=== PATIENT | male | born 1965 | race Caucasian/White ===

== ENCOUNTER 2018-02-14 09:26 | Inpatient (IN) | payer BC, OTHER ==
[2018-02-12 14:26] VITALS: BMI 25.0
[2018-02-14] MEDS ORDERED: ceFAZolin SODIUM 1 GM VIAL IVPB ONE (10:42)
[2018-02-14] MEDS ORDERED: PROMETHAZINE HCL 25 MG/1 ML VIAL IVPUSH PRN (12:09)
[2018-02-14] MEDS ORDERED: oxyCODONE HCL 5 MG TABLET PO PRN (12:09)
[2018-02-14] MEDS ORDERED: ONDANSETRON 4 MG/2 ML VIAL IVPUSH PRN (12:09)
--- NOTE | 2018-02-14 12:10 | OP ---
Operative Note - Note: Operative Date: 02/14/18 Pre-Operative Diagnosis: Bilateral renal colic, left ureteral calculus Operation: Cysto left ureteroscopy, laser litho and stent placement Left. Stent placement right. Post-Operative Diagnosis: Same as Pre-op Anesthesia: General Drains & Tubes with Location: Bilateral stent placement Operative Report Dictated: Yes
[2018-02-14] MEDS ORDERED: LACTATED RINGERS SOLUTION 1,000 ML IV SCH (12:15)
[2018-02-14] MEDS ORDERED: ONDANSETRON 4 MG/2 ML VIAL IVPB ONE (14:40)
--- NOTE | 2018-02-14 14:52 | OP ---
DATE OF OPERATION: 02/14/2018 SURGEON: Tremayne Hartman MD ANESTHESIA: General. PREOPERATIVE DIAGNOSIS: Bilateral ureteral calculi. POSTOPERATIVE DIAGNOSIS: Bilateral ureteral calculi. PROCEDURES: Cystoscopy, left ureteroscopy, laser lithotripsy, and stent placement, and on the right side stent placement. FINDINGS: Urethra normal. Bladder within normal limits. Both ureteral orifices normally located with clear efflux. A 5-6-mm stone was found completely imbedded in the left lower ureter. There was a tremendous amount of periurethral inflammation and the tissue was found to be markedly fragile. PROCEDURE: Patient in lithotomy position under anesthesia was prepped and draped in the usual manner. Using a 22-scope, cystoscopy performed and a guide wire was placed in the left kidney. This was followed by a ureteroscopy and with considerable difficulty the stone was located. The ureteroscope could not be passed beyond the stone and the stone was found to be completely embedded in the wall of the ureter. Again, using the holmium laser and a 365 fiber, the stone was fragmented, but could not be basketed out because of the periurethral inflammation. It was at this point decided to just place the stent to prevent any further injury to the ureter, let the ureter heal, and maybe follow it up with ESWL or secondary lithotripsy. At this point, a second stent was placed in the right kidney, confirmed with x-ray. Patient tolerated the procedure well, left the operating room in a satisfactory condition. Thierno MEDEROS/[id number]
[2018-02-14] MEDS ORDERED: LIDOCAINE HCL 2% (50ML VIAL) SQ ONE (15:25)
[2018-02-14] MEDS ORDERED: LIDOCAINE HCL 2% JELLY (30 ML/TUBE) TP ONE (15:30)
[2018-02-14] MEDS ORDERED: MORPHINE SULFATE 2 MG/ML VIAL IVPUSH PRN (15:50)
[2018-02-14] MEDS ORDERED: DEXTROSE 5%-0.45% SALINE 1,000 ML IV SCH (16:45)
--- NOTE | 2018-02-14 16:47 | PROC ---
Procedure Note Procedure: Called by [facility] to secondary to patient in urinary retention s/p urology procedure. Spoke to Dr Weldon who asked surgical team to evaluate patient. Patient found with 10/10 pain, distended abdomen and unable to urinate. A 24F 3 -way catheter inserted with ease, clots irrigated and CBI started in [facility], fluid running freely and patient admitted for 23 hour observation. Dioni NO was present and assisted throughout the entire procedure.
[2018-02-14] MEDS ORDERED: PHENAZOPYRIDINE HCL 100 MG TABLET (FP) PO ONE (17:00)
[2018-02-14] MEDS ORDERED: PT OWN MED DRAWER 7, Y5N ONE (19:35)
[2018-02-14] MEDS: CEFAZOLIN 1 GM/D5W 1 GM/50 ML BAG IVPB SCH (19:39)
[2018-02-15] MEDS: CEFAZOLIN 1 GM/D5W 1 GM/50 ML BAG IVPB SCH ×2 (02:20→09:29)
--- NOTE | 2018-02-15 10:32 | PN ---
Progress Note (short form) - Note Progress Note: POD 1 Doing better, CBI return clear. Will d/c CBI. For discharge today with leg bag. Force oral fluids. Office Saturday for dorsey removal.
[2018-02-15] MEDS: oxyCODONE HCL 5 MG TABLET PO PRN ×3 (11:57→20:13)
[2018-02-15 13:03] LABS: HEMATOCRIT 41.1 % (35.4-49); HEMOGLOBIN 14.6 GM/dL (11.7-16.9); MCH 30.9 pg (25.7-33.7); MCHC 35.6 g/dl (32.0-35.9); MEAN PLT VOLUME 7.6 fl (7.5-11.1); PLATELET COUNT 317 K/MM3 (134-434); RBC 4.73 M/mm3 (4.00-5.60); RDW 13.5 % (11.9-15.9); WHITE BLOOD COUNT 10.8 K/mm3 (4.0-10.0)
[2018-02-15 13:30] LABS: ALBUMIN 3.7 g/dl (3.4-5.0); ALK PHOS 100 U/L (45-117); ANION GAP 7 MMOL/L (8-16); BILIRUBIN,TOTAL 0.6 mg/dL (0.2-1); BLOOD UREA NITROGEN 12 mg/dL (7-18); CALCIUM 8.7 mg/dL (8.5-10.1); CHLORIDE 105 mmol/L (98-107); CO2 27 mmol/L (21-32); CREATININE 1.2 mg/dL (0.55-1.3); GLUCOSE,RANDOM 99 mg/dL (74-106); POTASSIUM 4.1 mmol/L (3.5-5.1); SGOT/AST 18 U/L (15-37); SGPT/ALT 31 U/L (13-61); SODIUM 139 mmol/L (136-145); TOT PROT 7.3 g/dl (6.4-8.2)
[2018-02-16] MEDS: oxyCODONE HCL 5 MG TABLET PO PRN (11:07)
--- NOTE | 2018-02-16 11:31 | PN ---
Progress Note (short form) - Note Progress Note: Status Post Bilateral stent placement. Hematuria and clot retention. Has indwelling dorsey. Will keep him in hospital for pain management. Will get KUB. Will d/c dorsey in am and decide. Had bowel movements. Abd is soft, non tender. Dorsey draining still pinkish urine. To increase oral fluids. Will observe.
[2018-02-16] MEDS ORDERED: oxyCODONE HCL 5 MG TABLET PO PRN (16:06)
[2018-02-16] MEDS: DOCUSATE SODIUM 100 MG CAPSULE (FP) PO SCH (18:08)
[2018-02-17] MEDS: DOCUSATE SODIUM 100 MG CAPSULE (FP) PO SCH ×2 (06:46→13:13)
--- NOTE | 2018-02-17 09:14 | PN ---
Progress Note (short form) - Note Progress Note: Doing much better. Pt. appears to be constipated, on colace. Will d/c dorsey and discharge. Office on Saturday.
[2018-02-17 15:09] VITALS: BP 138/85; PULSE 72; TEMP 97.9
== END 2018-02-17 15:50 | disposition home or self-care (01) | DRG 661 ==
LOC: JASUSAT 09:26 → J8W 18:00 → JASUSAT 18:16
PROVIDERS: ADMIT Urology; ATTEND Urology
PROC: 0T788DZ Dilation of Bilateral Ureters with Intraluminal Device, Via Natural or Artificial Opening Endoscopic (ICD-10-PCS; principal; 2018-02-14 11:00)
PROC: 0TC78ZZ Extirpation of Matter from Left Ureter, Via Natural or Artificial Opening Endoscopic (ICD-10-PCS; 2018-02-14 11:00)
PROC: 3E1K38Z Irrigation of Genitourinary Tract using Irrigating Substance, Percutaneous Approach (ICD-10-PCS; 2018-02-14 11:00)
DX: N20.1 Calculus of ureter (principal); K59.00 Constipation, unspecified; R33.9 Retention of urine, unspecified
CPT/HCPCS: 36415; 74018-TC-FY; 76000-TC-FY; 80053; 85027; 94760